=== PATIENT | male | born 1955 | race Caucasian/White ===

== ENCOUNTER 2017-04-29 14:07 | Emergency (ER) | payer OTHER ==
[~2017-04-29] VITALS: Ht 180.3 cm; Wt 71.4 kg
[~2017-04-29 14:07] MED LIST: FERR325T20 PO; IBUP200T64 PO; IRON1TAB31 PO; MULT-257 PO; None per pt; OXYC1TAB8 PO; SUPPLIMENTS; [UNRECOGNIZED DRUG - OTHER] PO
[2017-04-29] MEDS ORDERED: ACETAMINOPHEN 500 MG TABLET ONE (15:47)
[2017-04-29] MEDS ORDERED: ACETAMINOPHEN 500 MG TABLET PO ONE (16:00)
[2017-04-29 16:51] VITALS: BP 99/60
== END 2017-04-29 17:42 | disposition home or self-care (01) ==
LOC: ED 16:40
DX: T83.091A Other mechanical complication of indwelling urethral catheter, initial encounter (principal); N30.90 Cystitis, unspecified without hematuria; Z87.891 Personal history of nicotine dependence; Z85.048 Personal history of other malignant neoplasm of rectum, rectosigmoid junction, and anus; Y83.8 Other surgical procedures as the cause of abnormal reaction of the patient, or of later complication, without mention of misadventure at the time of the procedure; Y92.89 Other specified places as the place of occurrence of the external cause
CPT/HCPCS: 51702; 81001; 87077; 87086; 87186

== ENCOUNTER → 2017-05-17 | Outpatient (CLI) | payer OTHER ==
[~2017-05-17] MED LIST changes: +OMNIPAQUE 350 MG/ML, 100ML BOTTLE ONE
== END | disposition home or self-care (01) ==
LOC: CFH 09:16
PROVIDERS: ATTEND Internal Medicine Hematology & Oncology
DX: C20 Malignant neoplasm of rectum (principal); R91.8 Other nonspecific abnormal finding of lung field; J98.4 Other disorders of lung; N13.30 Unspecified hydronephrosis; D18.09 Hemangioma of other sites; N40.0 Benign prostatic hyperplasia without lower urinary tract symptoms; Z93.3 Colostomy status
CPT/HCPCS: 71260; 74177; Q9967

== ENCOUNTER → 2017-07-19 | Outpatient (CLI) | payer OTHER ==
[~2017-07-19] MED LIST changes: +FERR325T18 PO; -FERR325T20 PO
== END | disposition home or self-care (01) ==
LOC: CFH 08:46
PROVIDERS: ATTEND Internal Medicine Hematology & Oncology
DX: D18.03 Hemangioma of intra-abdominal structures (principal); C20 Malignant neoplasm of rectum; Z93.3 Colostomy status
CPT/HCPCS: 71260; 74177; 82565; Q9967

== ENCOUNTER 2017-08-06 06:24 | Day surgery (SDC) | payer OTHER ==
[~2017-08-06] VITALS: Ht 182.9 cm; Wt 76.2 kg
[~2017-08-06 06:24] MED LIST changes: -OMNIPAQUE 350 MG/ML, 100ML BOTTLE ONE
[2017-08-06] MEDS ORDERED: SODIUM CHLORIDE 0.9% 1,000 ML IV SCH (07:00)
[2017-08-06 07:24] VITALS: BP 113/68
[2017-08-06] MEDS ORDERED: FENTANYL PF 100 MCG/2ML ONE (07:42)
[2017-08-06] MEDS ORDERED: FLUMAZENIL 0.1 MG/1 ML, 5ML ONE (07:42)
[2017-08-06] MEDS ORDERED: MIDAZOLAM 1 MG/ML, 5ML ONE ×2 (07:42)
[2017-08-06] MEDS ORDERED: NALOXONE 1 MG/ML, 2ML ONE (07:43)
[2017-08-06] MEDS ORDERED: LIDOCAINE 2%, 20ML ONE (07:50)
== END 2017-08-06 12:10 ==
LOC: OUT 06:24
PROVIDERS: ATTEND Internal Medicine Hematology & Oncology
DX: C20 Malignant neoplasm of rectum (principal)
CPT/HCPCS: 32405; 71010; 77012; 88305; 88333; 99156; 99157; C2613; J2250; J3010; J3490; J7030; J2310

== ENCOUNTER 2017-09-02 09:14 | Day surgery (SDC) | payer OTHER ==
[~2017-09-02] VITALS: Ht 182.9 cm; Wt 71.4 kg
[2017-09-02] MEDS ORDERED: SODIUM CHLORIDE 0.9% 1,000 ML IV SCH (10:08)
[2017-09-02] MEDS ORDERED: FENTANYL PF 100 MCG/2ML ONE ×2 (10:48)
[2017-09-02] MEDS ORDERED: NALOXONE 1 MG/ML, 2ML ONE (10:48)
[2017-09-02] MEDS ORDERED: MIDAZOLAM 1 MG/ML, 5ML ONE ×2 (10:48)
[2017-09-02] MEDS ORDERED: FLUMAZENIL 0.1 MG/1 ML, 5ML ONE (10:48)
== END 2017-09-02 17:20 ==
LOC: OUT 09:14
PROVIDERS: ATTEND Internal Medicine Hematology & Oncology
DX: C19 Malignant neoplasm of rectosigmoid junction (principal); J98.4 Other disorders of lung; Z98.890 Other specified postprocedural states
CPT/HCPCS: 32405; 71010; 77012; 88305; 99156; J2250; J3010; J7030; 99157; J2310